=== PATIENT | male | born 1960 | race Caucasian/White ===

== ENCOUNTER 2022-10-01 21:23 | Observation (INO) | payer OTHER, SELFPAY ==
[2022-10-01] VITALS (8 sets, daily range): BP systolic 128–163; BP diastolic 72–91; PULSE 55–62; RESP 15–27; TEMP 36.5; O2SAT 98–100; BMI 23.7
--- NOTE | 2022-10-01 21:40 | DI.CT.S_ITS ---
PROCEDURE: CT ANGIO HEAD AND NECK INDICATIONS: recurrent transient Left side paresthesia TECHNIQUE: Pre-contrast 4.5 mm thick sections acquired from the foramen magnum to the vertex. After the administration of intravenous contrast, 1 mm thick sections acquired from the aortic arch through the [place] of [place]. Post-contrast 4.5 mm thick sections then re-acquired from the foramen magnum to the vertex. 3-dimensional jqugfnl-papenyebf-woadlntqfh (MIP) and/or volume rendering reformats were acquired of the central intracranial vasculature and neck separately. For radiation dose reduction, the following was used: automated exposure control, adjustment of mA and/or kV according to patient size. COMPARISON: None. FINDINGS: Image quality: Mild streak artifact can be seen through the skull base. There is also streak artifact seen through the level of the shoulders. BRAIN: CSF spaces: Ventricles are normal in size and shape. Basal cisterns are patent. No extra-axial fluid collections. Brain: No midline shift. No intracranial bleeds or masses. Yancey-white matter interface appears intact. Skull and face: Calvarium and facial bones appear intact, without suspicious lesions. Orbits appear normal. Sinuses: Sinuses and mastoids are clear. HEAD CT ANGIOGRAPHY: Anterior circulation: Intracranial internal carotid arteries are normal in size and flow. The flow within the paired anterior cerebral arteries is normal and symmetric. The flow within the middle cerebral arteries is normal and symmetric. The anterior communicating artery is seen. No aneurysms are seen. Posterior circulation: Visualized portions of the vertebral arteries demonstrate normal caliber, and join to form a normal appearing basilar artery. Flow within the posterior cerebral arteries is normal and symmetric. No aneurysms are seen. NECK CT ANGIOGRAPHY: Carotid system: The great vessels demonstrate a conventional anatomy as they arise from the aortic arch. The origins of the common carotid arteries appear patent. The common carotid arteries demonstrate normal caliber and courses. The bifurcation regions are both widely patent. The internal carotid arteries demonstrate normal calibers and courses. Posterior circulation: The origins of the vertebral arteries both appear widely patent. The more superior extracranial portions of both vertebral arteries also demonstrate normal courses and calibers. They join to form a normal appearing basilar artery. Soft tissues: Visualized neck soft tissues demonstrate no suspicious abnormalities. Bones: No suspicious bony lesions. Visualized cervical spine appears normally aligned. Moderate cervical spine degenerative changes can be seen, particularly within the mid and inferior cervical spine. IMPRESSION: No acute intracranial process is seen. No significant intracranial arterial abnormality is seen. Within the arteries of the neck, no hemodynamically significant stenosis can be seen. If there is strong clinical suspicion for an acute stroke, please consider a brain MRI for further evaluation, as it is more sensitive (assuming that there is no contraindication to MRI). Additional findings: Moderate cervical spine degenerative change Any quantitative measurements of stenosis were performed using NASCET criteria. Dictated by: Joon Kent M.D. on 10/01/2022 at 21:23 Approved by: Joon Kent M.D. on 10/01/2022 at 21:26
[2022-10-01 22:11] LABS: Appearance Urine UA CLEAR; Bilirubin Urine UA NEGATIVE (NEGATIVE); Color Urine UA YELLOW; Glucose Urine UA NEGATIVE (Negative); Ketones Urine UA NEGATIVE (NEGATIVE); Leukocyte Esterase Urine UA NEGATIVE (NEGATIVE); Nitrite Urine UA NEGATIVE (Negative); Occult Blood Urine UA NEGATIVE (Negative); Protein Urine UA NEGATIVE (Negative); Specific Gravity Urine UA <=1.005 (1.000-1.035); Urobilinogen Urine UA 0.2 E.U./dL (0.2); pH Urine UA 6.5 (4.5-8.0)
[2022-10-01 22:14] LABS: Add Manual Diff / Slide Review NO; Basophils Absolute Auto 100 /uL (0-100); Basophils Percent Auto 1.1 % (0-2); Eosinophils Absolute Auto 200 /uL (0-450); Eosinophils Percent Auto 2.8 % (2-4); Hematocrit 40.9 % (41-53); Hemoglobin 13.7 g/dL (13.5-17.5); Lymphocytes Absolute Auto 1900 /uL (1100-4500); Lymphocytes Percent Auto 34.6 % (25-40); Mean Corpuscular HGB Conc 33.6 % (30-36); Mean Corpuscular Hemoglobin 31.3 PG (26-34); Mean Corpuscular Volume 93.1 fL (80-100); Monocytes Absolute Auto 600 /uL (0-900); Monocytes Percent Auto 11.7 % (3-14); Neutrophils Absolute Auto 2700 /uL (1500-7000); Neutrophils Percent Auto 49.8 % (50-75); Platelet Count 197 X10^3/uL (150-400); Red Blood Cell Count 4.39 X10^6/uL (4.5-5.9); White Blood Cell Count 5.5 X10^3/uL (4.5-11.0)
[2022-10-01 22:14] LABS: UR Morphine/Opiate cutoff 300 Negative (Negative); Ur Creatinine 20 (Normal); Ur Specific Gravity <1.005 (Normal); Urine Amphetamines Negative (Negative); Urine Barbiturates Negative (Negative); Urine Benzodiazepines Negative (Negative); Urine Cocaine Negative (Negative); Urine MDMA Negative (Negative); Urine Methadone Negative (Negative); Urine Methamphetamines Negative (Negative); Urine Oxycodone Negative (Negative); Urine Phencyclidine Negative (Negative); Urine Tetrahydrocannabinol Negative (Negative); Urine Tricyclic Antidepressant Negative (Negative); Urine pH 6.5 (Normal)
[2022-10-01 22:17] LABS: INR 1.1 (0.9-1.3); Prothrombin Time 12.2 SECONDS (10.1-12.7)
[2022-10-01 22:20] LABS: PTT Partial Thromboplastin Tim 34 SECONDS (26-36)
[2022-10-01 22:22] LABS: Alanine Aminotransferase 21 IU/L (<50); Albumin 4.7 g/dL (3.5-5.0); Albumin Globulin Ratio 1.2 (1.0-2.8); Alkaline Phosphatase 73 U/L (38-126); Aspartate Aminotransferase 24 IU/L (17-59); BUN Creatinine Ratio 18.5 (6-22); Bilirubin Total 0.4 mg/dL (0.2-1.3); Blood Urea Nitrogen 15 mg/dL (9-20); Calcium 9.6 mg/dL (8.4-10.2); Carbon Dioxide 29 mmol/L (22-32); Chloride 102 mmol/L (98-107); Creatine Kinase 100 U/L (55-170); Estimated Glomerular Filt Rate > 60 mL/min (>60); Ethanol (ETOH) < 10 mg/dL; Globulin 3.8 g/dL (1.7-4.1); Glucose 88 mg/dL (80-110); HEMOLYSIS < 15 (0-50); Potassium 4.2 mmol/L (3.4-5.1); Sodium 139 mmol/L (137-145); Total Protein 8.5 g/dL (6.3-8.2)
[2022-10-01 22:33] LABS: Troponin I < 0.012 ng/mL (0.01-0.034)
[2022-10-01 22:43] LABS: Bacteria Urine None Seen; Culture Indicated Urine Cult Not Indicated; RBC Urine None Seen (0-5/HPF); WBC Urine None Seen (0-5/HPF)
[2022-10-01 23:02] LABS: COVID19 -Nasal RAPID Negative (Negative)
[2022-10-02] VITALS (8 sets, daily range): BP systolic 108–160; BP diastolic 63–77; PULSE 52–78; RESP 16–19; TEMP 36.3–37; O2SAT 96–100; BMI 23.7
--- NOTE | 2022-10-02 00:08 | ED.NEUROSD ---
HPI - Neuro Symptoms/Deficit General Chief Complaint: Neuro Symptoms/Deficit Stated Complaint: Tingling down left side Time Seen by Provider: 10/01/22 21:38 History of Present Illness HPI Narrative: 62-year-old gentleman with a history of hypertension presents with a week and half history of vertigo that he describes that his eyes not quite tracking the same causing dizziness. It is worse when he looks down or when he is going around a corner. 48 hours ago he had an episode lasting approximately 10 minutes where his left arm shoulder and leg experienced significant paresthesia without weakness. This happened when he was reaching over his head with his left arm. Similar episode happened earlier this evening, again reaching over his head with his left arm and significant decreased sensation all along the left side hand shoulder torso leg not involving head or face. Does note that he has some minor paresthesia still in the left small finger. There is no other complaints. He is not recently been ill, no trauma, no current chest pain, palpitations, dyspnea, abdominal pain, vomiting, diarrhea. On Anticoagulants: No Related Data Home Medications Medication Instructions Recorded Confirmed lisinopril 20 mg tablet 40 mg BEDTIME 10/02/22 10/02/22 Allergies Allergy/AdvReac Type Severity Reaction Status Date / Time No Known Drug Allergies Allergy Verified 10/01/22 21:34 Review of Systems Hematologic/Lymphatic On Anticoagulants: No Patient History Medical History Essential hypertension Ocular migraine Surgical History (Updated 10/02/22 @ 01:54 by RENATA Knowles) History of appendectomy History of knee surgery Family History (Updated 10/02/22 @ 01:55 by RENATA Knowles) Mother COPD (chronic obstructive pulmonary disease) Father Hypertension Social History household members: spouse Smoking Status: Never smoker Smoking Status: Never smoker alcohol intake frequency: a few times a week Substance Use Type: does not use Exam Initial Vital Signs Initial Vital Signs: Vital Signs Temperature 97.7 F 10/01/22 21:28 Pulse Rate 61 10/01/22 21:28 Respiratory Rate 16 10/01/22 21:28 Blood Pressure 163/75 H 10/01/22 21:28 Pulse Oximetry 100 10/01/22 21:28 Oxygen Delivery Method Room Air 10/01/22 21:28 General: Healthy appearing, in no acute distress. Able to give a complete and coherent history. Well-nourished well-developed HEENT: Moist mucous membranes, normal sclera with reactive pupils, Neck: No JVD, supple Respiratory: Lungs are clear to auscultation, no wheezing no rales no rhonchi. Full and symmetrical air movement Cardiac: Regular rate and rhythm no murmurs no bruits Abdomen: Soft, nontender, good bowel tones, no flank pain Skin: Warm and dry, no rashes Neurologic: Grossly neurologically intact with no obvious asymmetries or abnormalities. Perhaps minor paresthesia left small finger. NIH score is 0 Extremities: No trauma, well perfused Psych: Cooperative, appropriate insight and affect Scores NIH Stroke Scale Citation:: NIH score is 0 Course Orders Ordered: ED Orders 10/01/22 21:38 EKG-12 Lead Stat 10/01/22 21:40 CT angio head and neck Stat 10/01/22 22:00 Complete Blood Count AUTO DIFF Stat Comprehensive Metabolic Panel Stat Ethanol (ETOH) Stat PTT Partial Thromboplastin Adam Stat Prothrombin Time INR Stat Troponin & CK Cardiac Panel Stat 10/01/22 22:27 COVID19 -Nasal RAPID Stat Acetaminophen (Acetaminophen 325 Mg Tablet) 650 mg PO Q6H PRN PRN Reason: Fever/Mild Pain (1-3) Aspirin (Aspirin Ec 325 Mg Tablet) 325 mg PO DAILY [facility] Atorvastatin Calcium (Atorvastatin 20 Mg Tablet) 20 mg PO BEDTIME [facility] Clopidogrel Bisulfate (Clopidogrel 75 Mg Tablet) 75 mg PO DAILY [facility] Enoxaparin Sodium (Enoxaparin 40 Mg/0.4 Ml Syringe) 40 mg SUBCUT DAILY [facility] Naloxone HCl (Naloxone 0.4 Mg/Ml Vial) 0.2 mg IV Q2MIN PRN PRN Reason: Opiate Reversal Ondansetron HCl (Ondansetron 4 Mg/2 Ml Inj) 4 mg IV Q8HR PRN PRN Reason: Nausea And Vomiting Vital Signs Vital signs: Vital Signs - 8 hr 10/01/22 22:00 10/01/22 22:00 10/01/22 22:17 Pulse Rate 62 62 Respiratory Rate 26 H 15 Blood Pressure 146/76 H Pulse Oximetry 99 99 10/01/22 22:17 10/01/22 22:30 10/01/22 22:30 Pulse Rate 57 L Respiratory Rate 27 H Blood Pressure 153/91 H 139/82 Pulse Oximetry 100 10/01/22 23:00 10/01/22 23:00 10/01/22 23:30 Pulse Rate 55 L Respiratory Rate 15 Blood Pressure 140/72 128/75 Pulse Oximetry 99 10/01/22 23:30 10/02/22 00:00 10/02/22 00:02 Pulse Rate 55 L 77 Respiratory Rate 16 Blood Pressure 132/74 Pulse Oximetry 99 10/02/22 00:02 10/02/22 00:30 10/02/22 00:30 Pulse Rate 52 L 56 L Respiratory Rate 19 Blood Pressure 160/77 H Pulse Oximetry 100 100 MDM - Neuro Symptoms/Deficit Lab Data 10/01/22 22:00 10/01/22 22:00 Labs: Lab Results 10/01/22 10/01/22 10/01/22 Range/Units 20:43 20:45 22:00 WBC 5.5 (4.5-11.0) X10^3/uL RBC 4.39 L (4.5-5.9) X10^6/uL Hgb 13.7 (13.5-17.5) g/dL Hct 40.9 L (41-53) % MCV 93.1 (80-100) fL MCH 31.3 (26-34) PG MCHC 33.6 (30-36) % RDW 13.0 (11.6-14.8) % Plt Count 197 (150-400) X10^3/uL Neut % (Auto) 49.8 L (50-75) % Lymph % (Auto) 34.6 (25-40) % [place] % (Auto) 11.7 (3-14) % Eos % (Auto) 2.8 (2-4) % Baso % (Auto) 1.1 (0-2) % Neut # (Auto) 2700 (4510-8137) /uL Lymph # (Auto) 1900 (0575-9254) /uL [place] # (Auto) 600 (0-900) /uL Eos # (Auto) 200 (0-450) /uL Baso # (Auto) 100 (0-100) /uL PT (10.1-12.7) SECONDS INR (0.9-1.3) APTT (26-36) SECONDS Sodium (137-145) mmol/L Potassium (3.4-5.1) mmol/L Chloride (98-107) mmol/L Carbon Dioxide (22-32) mmol/L BUN (9-20) mg/dL Creatinine (0.66-1.25) mg/dL Estimated GFR (>60) mL/min BUN/Creatinine Ratio (6-22) Glucose (80-110) mg/dL Calcium (8.4-10.2) mg/dL Total Bilirubin (0.2-1.3) mg/dL AST (17-59) IU/L ALT (<50) IU/L Alkaline Phosphatase (38-126) U/L Total Creatine Kinase (55-170) U/L CK-MB (CK-2) CK-MB (CK-2) Rel Index Troponin I (0.01-0.034) ng/mL NT-Pro-B Natriuret Pep (<125) pg/mL Total Protein (6.3-8.2) g/dL Albumin (3.5-5.0) g/dL Globulin (1.7-4.1) g/dL Albumin/Globulin Ratio (1.0-2.8) Urine Color Yellow Urine Appearance Clear Urine pH 6.5 (4.5-8.0) Ur Specific [place] <=1.005 (1.000-1.035) Urine Protein Negative (Negative) Urine Glucose (UA) Negative (Negative) g/dL Urine Ketones Negative (NEGATIVE) Urine Occult Blood Negative (Negative) Urine Nitrate Negative (Negative) Urine Bilirubin Negative (NEGATIVE) Urine Urobilinogen 0.2 (0.2) E.U./dL Ur Leukocyte Esterase Negative (NEGATIVE) Urine RBC None seen (0-5/HPF) Urine WBC None seen (0-5/HPF) Urine Bacteria None seen (None) Ur Culture Indicated? Cult not indicated U Opiates 300ng/mL cut Negative (Negative) Ur Oxycodone Screen Negative (Negative) Urine Methadone Screen Negative (Negative) Ur Barbiturates Screen Negative (Negative) U Tricyclic Antidepress Negative (Negative) Ur Phencyclidine Scrn Negative (Negative) Ur Amphetamines Screen Negative (Negative) U Methamphetamines Scrn Negative (Negative) Ur MDMA Scrn (Ecstasy) Negative (Negative) U Benzodiazepines Scrn Negative (Negative) Urine Cocaine Screen Negative (Negative) U Marijuana (THC) Screen Negative (Negative) Ethyl Alcohol ( - 10) mg/dL SARS-CoV-2 (PCR) (Negative) 10/01/22 10/01/22 10/01/22 Range/Units 22:00 22:00 22:00 WBC (4.5-11.0) X10^3/uL RBC (4.5-5.9) X10^6/uL Hgb (13.5-17.5) g/dL Hct (41-53) % MCV (80-100) fL MCH (26-34) PG MCHC (30-36) % RDW (11.6-14.8) % Plt Count (150-400) X10^3/uL Neut % (Auto) (50-75) % Lymph % (Auto) (25-40) % [place] % (Auto) (3-14) % Eos % (Auto) (2-4) % Baso % (Auto) (0-2) % Neut # (Auto) (3353-6094) /uL Lymph # (Auto) (7872-8034) /uL [place] # (Auto) (0-900) /uL Eos # (Auto) (0-450) /uL Baso # (Auto) (0-100) /uL PT 12.2 (10.1-12.7) SECONDS INR 1.1 (0.9-1.3) APTT 34 (26-36) SECONDS Sodium 139 (137-145) mmol/L Potassium 4.2 (3.4-5.1) mmol/L Chloride 102 (98-107) mmol/L Carbon Dioxide 29 (22-32) mmol/L BUN 15 (9-20) mg/dL Creatinine 0.81 (0.66-1.25) mg/dL Estimated GFR > 60 (>60) mL/min BUN/Creatinine Ratio 18.5 (6-22) Glucose 88 (80-110) mg/dL Calcium 9.6 (8.4-10.2) mg/dL Total Bilirubin 0.4 (0.2-1.3) mg/dL AST 24 (17-59) IU/L ALT 21 (<50) IU/L Alkaline Phosphatase 73 (38-126) U/L Total Creatine Kinase 100 (55-170) U/L CK-MB (CK-2) TNP CK-MB (CK-2) Rel Index TNP Troponin I < 0.012 (0.01-0.034) ng/mL NT-Pro-B Natriuret Pep 56 (<125) pg/mL Total Protein 8.5 H (6.3-8.2) g/dL Albumin 4.7 (3.5-5.0) g/dL Globulin 3.8 (1.7-4.1) g/dL Albumin/Globulin Ratio 1.2 (1.0-2.8) Urine Color Urine Appearance Urine pH (4.5-8.0) Ur Specific [place] (1.000-1.035) Urine Protein (Negative) Urine Glucose (UA) (Negative) g/dL Urine Ketones (NEGATIVE) Urine Occult Blood (Negative) Urine Nitrate (Negative) Urine Bilirubin (NEGATIVE) Urine Urobilinogen (0.2) E.U./dL Ur Leukocyte Esterase (NEGATIVE) Urine RBC (0-5/HPF) Urine WBC (0-5/HPF) Urine Bacteria (None) Ur Culture Indicated? U Opiates 300ng/mL cut (Negative) Ur Oxycodone Screen (Negative) Urine Methadone Screen (Negative) Ur Barbiturates Screen (Negative) U Tricyclic Antidepress (Negative) Ur Phencyclidine Scrn (Negative) Ur Amphetamines Screen (Negative) U Methamphetamines Scrn (Negative) Ur MDMA Scrn (Ecstasy) (Negative) U Benzodiazepines Scrn (Negative) Urine Cocaine Screen (Negative) U Marijuana (THC) Screen (Negative) Ethyl Alcohol < 10 ( - 10) mg/dL SARS-CoV-2 (PCR) (Negative) 10/01/22 Range/Units 22:27 WBC (4.5-11.0) X10^3/uL RBC (4.5-5.9) X10^6/uL Hgb (13.5-17.5) g/dL Hct (41-53) % MCV (80-100) fL MCH (26-34) PG MCHC (30-36) % RDW (11.6-14.8) % Plt Count (150-400) X10^3/uL Neut % (Auto) (50-75) % Lymph % (Auto) (25-40) % [place] % (Auto) (3-14) % Eos % (Auto) (2-4) % Baso % (Auto) (0-2) % Neut # (Auto) (5153-2417) /uL Lymph # (Auto) (8798-6444) /uL [place] # (Auto) (0-900) /uL Eos # (Auto) (0-450) /uL Baso # (Auto) (0-100) /uL PT (10.1-12.7) SECONDS INR (0.9-1.3) APTT (26-36) SECONDS Sodium (137-145) mmol/L Potassium (3.4-5.1) mmol/L Chloride (98-107) mmol/L Carbon Dioxide (22-32) mmol/L BUN (9-20) mg/dL Creatinine (0.66-1.25) mg/dL Estimated GFR (>60) mL/min BUN/Creatinine Ratio (6-22) Glucose (80-110) mg/dL Calcium (8.4-10.2) mg/dL Total Bilirubin (0.2-1.3) mg/dL AST (17-59) IU/L ALT (<50) IU/L Alkaline Phosphatase (38-126) U/L Total Creatine Kinase (55-170) U/L CK-MB (CK-2) CK-MB (CK-2) Rel Index Troponin I (0.01-0.034) ng/mL NT-Pro-B Natriuret Pep (<125) pg/mL Total Protein (6.3-8.2) g/dL Albumin (3.5-5.0) g/dL Globulin (1.7-4.1) g/dL Albumin/Globulin Ratio (1.0-2.8) Urine Color Urine Appearance Urine pH (4.5-8.0) Ur Specific [place] (1.000-1.035) Urine Protein (Negative) Urine Glucose (UA) (Negative) g/dL Urine Ketones (NEGATIVE) Urine Occult Blood (Negative) Urine Nitrate (Negative) Urine Bilirubin (NEGATIVE) Urine Urobilinogen (0.2) E.U./dL Ur Leukocyte Esterase (NEGATIVE) Urine RBC (0-5/HPF) Urine WBC (0-5/HPF) Urine Bacteria (None) Ur Culture Indicated? U Opiates 300ng/mL cut (Negative) Ur Oxycodone Screen (Negative) Urine Methadone Screen (Negative) Ur Barbiturates Screen (Negative) U Tricyclic Antidepress (Negative) Ur Phencyclidine Scrn (Negative) Ur Amphetamines Screen (Negative) U Methamphetamines Scrn (Negative) Ur MDMA Scrn (Ecstasy) (Negative) U Benzodiazepines Scrn (Negative) Urine Cocaine Screen (Negative) U Marijuana (THC) Screen (Negative) Ethyl Alcohol ( - 10) mg/dL SARS-CoV-2 (PCR) Negative (Negative) Urine Dip Bedside Urine Glucose Negative Bedside Urine Bilirubin - Negative Bedside Urine Ketone - Negative Urine Specific [place] 1.010 Bedside Urine Occult Blood - Negative Bedside Urine pH 7.0 Bedside Urine Protein - Negative Bedside Urine Urobilinogen - Negative Bedside Urine Nitrite - Negative Bedside Urine Leukocytes - Negative Esterase Imaging Data CTA head and neck: Radiologist's Impression: FINDINGS:? Image quality:? Mild streak artifact can be seen through the skull base.? There is also streak artifact seen through the level of the shoulders. ? BRAIN:? CSF spaces:? Ventricles are normal in size and shape.? Basal cisterns are patent.? No extra-axial fluid collections.? ? Brain:? No midline shift.? No intracranial bleeds or masses.? Yancey-white matter interface appears intact.? ? Skull and face:? Calvarium and facial bones appear intact, without suspicious lesions.? Orbits appear normal.? ? Sinuses:? Sinuses and mastoids are clear.? ? HEAD CT ANGIOGRAPHY:? Anterior circulation:? Intracranial internal carotid arteries are normal in size and flow.? The flow within the paired anterior cerebral arteries is normal and symmetric.? The flow within the middle cerebral arteries is normal and symmetric.? The anterior communicating artery is seen.? No aneurysms are seen.? ? Posterior circulation:? Visualized portions of the vertebral arteries demonstrate normal caliber, and join to form a normal appearing basilar artery.? Flow within the posterior cerebral arteries is normal and symmetric.? No aneurysms are seen.? ? NECK CT ANGIOGRAPHY:? Carotid system:? The great vessels demonstrate a conventional anatomy as they arise from the aortic arch.? The origins of the common carotid arteries appear patent.? The common carotid arteries demonstrate normal caliber and courses.? The bifurcation regions are both widely patent.? The internal carotid arteries demonstrate normal calibers and courses.? ? Posterior circulation:? The origins of the vertebral arteries both appear widely patent.? The more superior extracranial portions of both vertebral arteries also demonstrate normal courses and calibers.? They join to form a normal appearing basilar artery.? ? Soft tissues:? Visualized neck soft tissues demonstrate no suspicious abnormalities.? ? Bones:? No suspicious bony lesions.? Visualized cervical spine appears normally aligned.? Moderate cervical spine degenerative changes can be seen, particularly within the mid and inferior cervical spine. ? ? ? IMPRESSION:? ? No acute intracranial process is seen.? ? No significant intracranial arterial abnormality is seen.? ? Within the arteries of the neck, no hemodynamically significant stenosis can be seen. ? ? If there is strong clinical suspicion for an acute stroke, please consider a brain MRI for further evaluation, as it is more sensitive (assuming that there is no contraindication to MRI). ? ? ? Additional findings:? Moderate cervical spine degenerative change ? Any quantitative measurements of stenosis were performed using NASCET criteria.? ? ? Dictated by: Joon Kent M.D. on 10/01/2022 at 21:23 ?? MDM Narrative Medical decision making narrative: CC: 2 episodes of left-sided paresthesias lasting 10 minutes, vertigo for the last week and a half. This is an acute finding with potential for significant systemic symptoms and life-threatening complication Complicating co-morbidities: Hypertension Corroborating data: Data collected from: patient, and Differential considered: Stroke, TIA, mass or tumor, infection Exam documented above, pertinent findings include: Back to baseline with NIH score is 0 Lab Test results independently reviewed as above. Pertinent findings: CBC is unremarkable Chemistries are unremarkable Independently reviewed EKG as above -sinus rhythm with no acute ischemic changes Imaging studies independently reviewed: CTA of the head and neck shows no acute findings and no large vessel occlusions Discussion: Otherwise healthy 62-year-old gentleman with vertigo for a week and a half and 2 episodes now of left-sided body paresthesia each lasting for 10 minutes. Needs further workup for TIA versus stroke. Will admit to the hospitalist service with anticipation of MRI, additional lab studies and likely echocardiogram. Findings and plan reviewed with patient he and his are agreeable to current admission. Care is reviewed with the hospitalist service Discharge Plan Departure Patient Disposition: Admitted as Observation Clinical Impression: Vertigo Transient cerebral ischemia Qualifiers: Transient cerebral ischemia type: unspecified Qualified Code(s): G45.9 - Transient cerebral ischemic attack, unspecified Admit Date/Time: 10/02/22 00:32 Admit Provider: Gely Butler
--- NOTE | 2022-10-02 00:35 | DI.MRI.S_ITS ---
PROCEDURE: MR HEAD/BRAIN WO CON INDICATIONS: TIA/Stroke r/o TECHNIQUE: Non-contrast axial T1 spin echo, axial T2 fast spin echo, sagittal and axial FLAIR, coronal T2 fast spin echo, axial gradient echo, axial diffusion and ADC through the brain. COMPARISON: [facility], CT, CT ANGIO HEAD AND NECK, 10/01/2022, 21:46. FINDINGS: Image quality: Excellent. CSF spaces: Ventricles appear symmetric in size and shape. Basal cisterns are patent. No extra-axial fluid collections. Brain: No intracranial bleeds or mass effects. There is cerebral volume loss for age. There are periventricular and deep white matter chronic small vessel ischemic changes. Brainstem appears normal. Diffusion-weighted images show no acute ischemic insults. No chronic ischemic insults. Normal intravascular flow voids are present. Skull and face: Calvarial bone marrow is normal in signal. Orbits are normal. Sinuses: Moderate amount of left mastoid fluid. Right mastoids are clear. Sinuses are clear. IMPRESSION: 1. No acute process. No recent infarct. 2. Mild volume loss. Minimal small vessel ischemic disease. Dictated by: Aydee Day M.D. on 10/02/2022 at 9:08 Approved by: Aydee Day M.D. on 10/02/2022 at 9:09
--- NOTE | 2022-10-02 00:37 | DI.ECHO.S_ITS ---
[facility] +---------+ [facility] +---------+ : : [address] : : : : [id number] : : : : Phone: [phone]+ Echocardiogram Report + + :Name: ASIF ARDON Study Date: 10/02/2022 Height: 72 in : :[facility] ReadingLocation: [facility] Weight: 175 lb : : Gender: Male BSA: 2.0 m2 : :: 1960 Age: 62 yrs BP: 108/77 mmHg: :Reason For Study: TIA r/o Stroke : : Performed By: Lynda Zapien : :Referring: MIKAYLA GRANDE : + + Interpretation Summary The left ventricle is normal in size. Left ventricular systolic function appears normal without focal wall motion abnormalities. The ejection fraction is estimated to be 55-60%. Diastolic parameters suggest a relaxation abnormality of the left ventricle, consistent with probable normal filling pressures. The right ventricle is moderately dilated. The right ventricular systolic function is normal. The right ventricular systolic pressure is estimated to be at least 23 mmHg based on an estimated right atrial pressure of 3 mm Hg. The left atrium is borderline dilated. The right atrium is mildly dilated. Injection of contrast documented no interatrial shunt. There is mild mitral valve prolapse. There is prolapse of the posterior mitral valve leaflet(s). There is a late systolic MR that is moderate at most. There is mild aortic regurgitation. There is mild to moderate pulmonic regurgitation. The aortic root is mildly dilated. Procedure: A two-dimensional transthoracic echocardiogram with color flow and Doppler was performed. The study quality was technically adequate. There is no prior echocardiogram noted for this patient. A saline contrast injection was performed to assess for cardiac shunting. The patient was in normal sinus rhythm during the exam. Left Ventricle: The left ventricle is normal in size. Left ventricular wall thickness is mildly increased. Left ventricular systolic function appears normal without focal wall motion abnormalities. The ejection fraction is estimated to be 55-60%. Diastolic parameters suggest a relaxation abnormality of the left ventricle, consistent with probable normal filling pressures. Right Ventricle: The right ventricle is moderately dilated. The right ventricular systolic function is normal. Atria: The left atrium is borderline dilated. The right atrium is mildly dilated. Injection of contrast documented no interatrial shunt. Mitral Valve: The mitral valve leaflets appear mildly thickened, but open well. There is mild mitral valve prolapse. There is prolapse of the posterior mitral valve leaflet(s). There is no mitral valve stenosis. There is a late systolic MR that is moderate at most. Aortic Valve: The aortic valve is trileaflet. The aortic valve opens well. There is no aortic valve stenosis. There is mild aortic regurgitation. Tricuspid Valve: The tricuspid valve is normal. There is no tricuspid stenosis. There is mild tricuspid regurgitation. The right ventricular systolic pressure is estimated to be at least 23 mmHg based on an estimated right atrial pressure of 3 mm Hg. Pulmonic Valve: There is borderline thickening of the pulmonic valve. There is no pulmonic valvular stenosis. There is mild to moderate pulmonic regurgitation. Great Vessels: The aortic root is mildly dilated. The ascending aorta is at the upper limits of normal in size. The pulmonary artery is normal size. The IVC is of normal diameter and collapses greater than 50% with a sniff. This suggests a low right atrial pressure of 3 mm Hg. Pericardium/ Pleura There is no pericardial effusion. There is no pleural effusion. MMode/2D Measurements & Calculations LVIDd: 5.3 cm LVOT diam: 2.7 cm LVIDs: 3.3 cm Ao root diam: 3.9 cm FS: 37.5 % asc Aorta Diam: 3.4 cm EPSS: 0.86 cm IVSd: 1.3 cm LVPWd: 1.0 cm LV zee. diameter/BSA (cm/m^2): 2.6 LV sys. diameter/BSA (cm/m^2): 1.6 LA A2 area: 20.7 cm2 RA long axis: 5.8 cm LA A4 area: 20.8 cm2 RA area: 22.3 cm2 LA length (vol): 5.6 cm RA vol: 72.5 ml LA vol: 64.8 ml RA : 36.0 ml/m2 LA vol index: 32.2 ml/m2 TAPSE: 3.5 cm Doppler Measurements & Calculations Ao V2 max: 124.3 cm/sec LVOT Max Calvin: 91.2 cm/sec Ao V2 mean: 82.3 cm/sec LV V1 max P.3 mmHg Ao max P.2 mmHg LV V1 VTI: 19.1 cm Ao mean P.1 mmHg SELVIN(I,D): 4.2 cm2 Ao V2 VTI: 25.0 cm SELVIN(V,D): 4.0 cm2 sev ratio: 0.76 SELVIN indexed to BSA (cm^2/m^2): 2.1 MV E max calvin: 44.7 cm/sec TR max calvin: 224.1 cm/sec MV A max calvin: 38.8 cm/sec TR max P.1 mmHg MV E/A: 1.2 PA V2 max: 63.4 cm/sec Med Peak E' Calvin: 9.2 cm/sec PA V2 mean: 44.3 cm/sec E/E' med: 4.9 PA mean P.86 mmHg Lat Peak E' Calvin: 12.1 cm/sec PA pr(Accel): 34.5 mmHg E/E' lat: 3.7 E/e' average: 4.3 MV dec time: 0.33 sec SV(LVOT): 105.2 ml Reading Physician:05:40 PM
--- NOTE | 2022-10-02 00:45 | PM.HP.1 ---
History of Present Illness History of Present Illness Date Patient Seen: 10/02/22 Time Patient Seen: 00:45 Chief complaint: Tingling down left side Narrative: Clark Reeder is a 62-year-old male with a medical history of hypertension, ocular migraines who presented to the ED following approximately a week and a half vertigo and describes symptoms as my eyes are off, and they do not track in a coordinated fashion, looking down, and turning his head worsens the vertigo he also reported that at some point he was reaching up with his left hand and experienced paresthesia of the left hand and arm which lasted approximately 10 minutes and then resolved. Patient notes that he did have a cold a few weeks ago, and his left ear occasionally feels congested or blocked, had COVID March of 2022. Denies any previous history of stroke or TIA or family history. Patient was diagnosed with ocular migraines approximately 6 months ago and had an EYE MRI at [facility] in [place] where he has his primary care which was negative. Upon arrival in the ED patient's symptoms had completely resolved. His blood pressure was slightly elevated, I personally reviewed all laboratory workups including troponin, EKG, and head and neck CTA which were all negative. On admit patient denies chest pain, shortness in breath, headache, changes in vision, difficulty swallowing, speech impairment, weakness, numbness, tingling, difficulty with ambulation, recent falls, head injury, LOC, fever, body aches, chills, cough, recent exposure to illness, abdominal pain, nausea, vomiting, urinary incontinence/retention, dysuria, frequency, urgency, hematuria, bowel changes, constipation, incontinence, melena, rashes, recent changes to medication, illness, injury, or trauma. Patient admitted for TIA, vertigo, stroke rule out. Patient History Medical History Essential hypertension Ocular migraine Surgical History (Updated 10/02/22 @ 01:54 by RENATA Knowles) History of appendectomy History of knee surgery Family & Social History Family History (Updated 10/02/22 @ 01:55 by RENATA Knowles) Mother COPD (chronic obstructive pulmonary disease) Father Hypertension Safety & Behavioral: Feels Safe in Current Yes Environment Been Physically Hurt or No Threatened By a Person Tobacco & Substance use: Smoking Status Never smoker alcohol intake frequency a few times a week Substance Use Type does not use Meds Home Medications and Allergies Home Medications Medication Instructions Recorded Confirmed Type lisinopril 20 mg tablet 40 mg BEDTIME 10/02/22 10/02/22 History Allergies Allergy/AdvReac Type Severity Reaction Status Date / Time No Known Drug Allergies Allergy Verified 10/01/22 21:34 Review of Systems Review of Systems Narrative: All 12 point systems reviewed with the patient and are negative except otherwise documented. Exam Vital Signs (past 8 hours): - 10/01/22 21:28 10/01/22 21:43 10/01/22 21:48 Temperature 97.7 F Pulse Rate 61 58 L 62 Respiratory Rate 16 21 19 Blood Pressure 163/75 H Pulse Oximetry 100 98 100 Oxygen Delivery Method Room Air 10/01/22 21:48 10/01/22 22:00 10/01/22 22:00 Temperature Pulse Rate 62 Respiratory Rate 26 H Blood Pressure 154/78 H 146/76 H Pulse Oximetry 99 Oxygen Delivery Method 10/01/22 22:17 10/01/22 22:17 10/01/22 22:30 Temperature Pulse Rate 62 Respiratory Rate 15 Blood Pressure 153/91 H 139/82 Pulse Oximetry 99 Oxygen Delivery Method 10/01/22 22:30 10/01/22 23:00 10/01/22 23:00 Temperature Pulse Rate 57 L 55 L Respiratory Rate 27 H 15 Blood Pressure 140/72 Pulse Oximetry 100 99 Oxygen Delivery Method 10/01/22 23:30 10/01/22 23:30 10/02/22 00:00 Temperature Pulse Rate 55 L 77 Respiratory Rate 16 Blood Pressure 128/75 Pulse Oximetry 99 Oxygen Delivery Method 10/02/22 00:02 10/02/22 00:02 10/02/22 00:30 Temperature Pulse Rate 52 L Respiratory Rate Blood Pressure 132/74 160/77 H Pulse Oximetry 100 Oxygen Delivery Method 10/02/22 00:30 Temperature Pulse Rate 56 L Respiratory Rate 19 Blood Pressure Pulse Oximetry 100 Oxygen Delivery Method Oxygen Delivery Method Room Air Narrative Exam Narrative: General: Patient is a well-developed, well-nourished in no distress at this time. HEENT: Normocephalic, atraumatic, extraocular muscles intact, oral pharynx is clear and mucous membranes are moist. Neck is supple and symmetric, trachea is midline, no adenopathy, no thyroid enlargement, nontender, no masses palpated. Negative for JVD Chest: Normal AP diameter and contour without kyphoscoliosis, no nasal flaring, retractions, or tachypneic labored Lungs: Auscultation of all lung acevedo are clear without adventitious sounds, wheezes, rhonchi, or rales. Cardio: S1 & S2 with regular rate and rhythm without murmur, rubs, or gallops, no carotid bruit, no cardiac pulsations present. Abdomen: Soft nontender, negative for organomegaly, or masses. Bowel sounds are present in all 4 quadrants without guarding or rebound, no CVA tenderness. Musculoskeletal: Muscle strength and tone are equal within normal limits, no deformity, crepitus, effusions, cyanosis, clubbing or edema present. Full range of motion intact radial and pedal pulses are normal. Skin: Warm dry and intact without rashes, ulcerations or petechiae. Neuro: Alert and orientated x3, strength is +5/5 in all extremities, sensation to touch intact, no gross deficits noted of cranial nerves. Psych: Patient has a well-kept appearance, appropriate affect, mental status attitude thought context and judgment are appropriate for age. Objective Labs 10/01/22 22:00 10/01/22 22:00 Labs: Laboratory Results - last 24 hr 10/01/22 10/01/22 10/01/22 20:43 20:45 22:00 WBC 5.5 RBC 4.39 L Hgb 13.7 Hct 40.9 L MCV 93.1 MCH 31.3 MCHC 33.6 RDW 13.0 Plt Count 197 Neut % (Auto) 49.8 L Lymph % (Auto) 34.6 [place] % (Auto) 11.7 Eos % (Auto) 2.8 Baso % (Auto) 1.1 Neut # (Auto) 2700 Lymph # (Auto) 1900 [place] # (Auto) 600 Eos # (Auto) 200 Baso # (Auto) 100 PT INR APTT Sodium Potassium Chloride Carbon Dioxide BUN Creatinine Estimated GFR BUN/Creatinine Ratio Glucose Calcium Total Bilirubin AST ALT Alkaline Phosphatase Total Creatine Kinase CK-MB (CK-2) CK-MB (CK-2) Rel Index Troponin I Total Protein Albumin Globulin Albumin/Globulin Ratio Urine Color Yellow Urine Appearance Clear Urine pH 6.5 Ur Specific [place] <=1.005 Urine Protein Negative Urine Glucose (UA) Negative Urine Ketones Negative Urine Occult Blood Negative Urine Nitrate Negative Urine Bilirubin Negative Urine Urobilinogen 0.2 Ur Leukocyte Esterase Negative Urine RBC None seen Urine WBC None seen Urine Bacteria None seen Ur Culture Indicated? Cult not indicated U Opiates 300ng/mL cut Negative Ur Oxycodone Screen Negative Urine Methadone Screen Negative Ur Barbiturates Screen Negative U Tricyclic Antidepress Negative Ur Phencyclidine Scrn Negative Ur Amphetamines Screen Negative U Methamphetamines Scrn Negative Ur MDMA Scrn (Ecstasy) Negative U Benzodiazepines Scrn Negative Urine Cocaine Screen Negative U Marijuana (THC) Screen Negative Ethyl Alcohol SARS-CoV-2 (PCR) 10/01/22 10/01/22 10/01/22 22:00 22:00 22:27 WBC RBC Hgb Hct MCV MCH MCHC RDW Plt Count Neut % (Auto) Lymph % (Auto) [place] % (Auto) Eos % (Auto) Baso % (Auto) Neut # (Auto) Lymph # (Auto) [place] # (Auto) Eos # (Auto) Baso # (Auto) PT 12.2 INR 1.1 APTT 34 Sodium 139 Potassium 4.2 Chloride 102 Carbon Dioxide 29 BUN 15 Creatinine 0.81 Estimated GFR > 60 BUN/Creatinine Ratio 18.5 Glucose 88 Calcium 9.6 Total Bilirubin 0.4 AST 24 ALT 21 Alkaline Phosphatase 73 Total Creatine Kinase 100 CK-MB (CK-2) TNP CK-MB (CK-2) Rel Index TNP Troponin I < 0.012 Total Protein 8.5 H Albumin 4.7 Globulin 3.8 Albumin/Globulin Ratio 1.2 Urine Color Urine Appearance Urine pH Ur Specific [place] Urine Protein Urine Glucose (UA) Urine Ketones Urine Occult Blood Urine Nitrate Urine Bilirubin Urine Urobilinogen Ur Leukocyte Esterase Urine RBC Urine WBC Urine Bacteria Ur Culture Indicated? U Opiates 300ng/mL cut Ur Oxycodone Screen Urine Methadone Screen Ur Barbiturates Screen U Tricyclic Antidepress Ur Phencyclidine Scrn Ur Amphetamines Screen U Methamphetamines Scrn Ur MDMA Scrn (Ecstasy) U Benzodiazepines Scrn Urine Cocaine Screen U Marijuana (THC) Screen Ethyl Alcohol < 10 SARS-CoV-2 (PCR) Negative Assessment & Plan Assessment & Plan narrative: Clark Reeder is a 62-year-old male with a medical history of hypertension, ocular migraines who presented to the ED following a week and a half of visual changes and disturbances, paresthesia and vertigo. Patient will be admitted overnight for observation TIA stroke workup, with echo and MRI in the morning 1. TIA (visual changes with vertigo, paresthesia of left arm hand), transient, acute, present on admission-resolved -patient admitted under TIA stroke protocol-NIH score 0 -Plavix, ASA, Lipitor -echo and MRI tomorrow -orthostatics q.4 hours while awake only 2. Hypertension, essential, chronic, present on admission -continue lisinopril Code status:Full Surrogate decision maker: KEVIN PCR:Negative DVT/VTE prophylaxis: Lovenox and SCDs Disposition: Patient admitted for observation, expected length of stay less than 2 midnights. I have utilized all available immediate resources to obtain, update, or review the patient's current medications. I confirmed that the patient's advanced care plan is present, Code status is documented and/or surrogate decision maker is listed in the patient's medical record. I have personally reviewed patient's chart notes from PCP, specialists, diagnostic imaging, and laboratory results.
[2022-10-02 01:07] LABS: NT-proBNP (BNP-Adult 18+) 56 pg/mL (<125)
[2022-10-02 05:59] LABS: Cholesterol 178 mg/dL (140-199); HDL Cholesterol 44 mg/dL (40-60); LDL Cholesterol Calculated 117 mg/dL (<100); Triglycerides 86 mg/dL (35-150)
--- NOTE | 2022-10-02 09:09 | CM.DANOTE ---
DCP: Case received, EMR reviewed. Patient is currently having MRI, but spouse, Omayra, was in the room. Introduced self and role. Was able to obtain information regarding patient's baseline activity prior to hospitalization. DCP assessment completed with information currently available. Patient is a 62 year old male who admitted early this morning to the care of the hospitalist team. PCP: Dr. Basilio (in [place]). Payer: confirmed: [facility]. Patient came to the hospital via private vehicle secondary to having vertigo, stated, eyes not tracking, causing dizziness. Patient indicated, episode lasted about 10 minutes, some paresthesia without weakness. Patient is here for TIA, symptoms, had MRI, no infarct. Patient was having an MRI at the time, spouse in the room. Confirmed that they live on [address] [place], and in [place] in the fall and winter months. Patient is independent at his baseline, his primary care provider is at [facility] in [place]. He is currently building a cabin on [address]. P: DCP to continue to follow. Patient will work with therapy today. Patient should be able to go home when deemed medically stable. Diana Lyons RN/Security Delivery Specialist Discharge Planning/Care Management CM Discharge Assessment Start: 10/02/22 09:04 Freq: Status: Active Protocol: Document 10/02/22 09:04 (Rec: 10/02/22 09:09 [id number]) Discharge Planning Assessment Assigned Artillery Officer Diana Lyons RN/Security Delivery Specialist Advance Directives? No History Provided By Patient,Medical Record Prior Living Arrangements House Household Members spouse Type of transporation used prior to Drives own vehicle admit Independent with ADL's Yes Is patient alert and oriented? Yes Caregiver for Another No Barriers to Discharge No Transportation Arrangement Spouse Referrals Initiated None needed Whiteboard Updated in Patient Room with Yes name and ext. # of Artillery Officer Review Status In Process Next Review Type Continued Stay Review
[2022-10-02] MEDS: CLOPIDOGREL 75 MG TABLET PO (09:48)
[2022-10-02] MEDS: ASPIRIN EC 325 MG TABLET PO (09:48)
[2022-10-02] MEDS: ENOXAPARIN 40 MG/0.4 ML SYRINGE SUBCUT (09:49)
--- NOTE | 2022-10-02 10:15 | PC.NURSE ---
Pt NIH scale at 1 d/t slight tingling in both left extremities. present in room. No c/o pain.
--- NOTE | 2022-10-02 11:56 | PT.IIE ---
Surgical History (Last Updated 10/02/22 @ 01:54 by Gely Butler [facility]) History of appendectomy History of knee surgery Medical History (Last Reviewed 10/02/22 @ 00:50 by Gely Butler [facility]) Essential hypertension Ocular migraine Physical Therapy Inpatient Evaluation/Re-Eval M1 PT/OT-IP Prior Functional Status Start: 10/02/22 11:43 Freq: Status: Active Protocol: Document 10/02/22 11:43 BC (Rec: 10/02/22 11:56 [id number]) Medical Review Prior Functional Status Medical History Reviewed Yes Diet/Fluid Consistency Regular Communication Independent Mobility and Gait Independent Activities of Daily Living and IADL's Independent Prior Functional Level (Other details) [place] Lives [place] and in [place]. Lives with spouse. Social History Household Members spouse Living Arrangements House Number of Floors (Floors) Two Floors Number of Stairs To Enter/Railing? 1 flight of stairs, no railing yet (being built) by a wall on R side. Home Environment Walk in Shower Employment Status Retired Additional Social History Comment Retired a few years ago. Has been [place]. M2 PT-IP Current Condition Start: 10/02/22 11:43 Freq: Status: Active Protocol: Document 10/02/22 11:43 BC (Rec: 10/02/22 11:56 [id number]) Physical Therapy Current Condition Current Condition Evaluation Date 10/02/22 Treatment Diagnosis TIA, vertigo Onset Date 10/01/22 M3 PT-IP Subjective Start: 10/02/22 11:43 Freq: Status: Active Protocol: Document 10/02/22 11:43 BC (Rec: 10/02/22 11:56 [id number]) Subjective Physical Therapy Visit Type Type Initial Evaluation Visit Start Time 11:00 Visit Stop Time 11:43 Total Visit Minutes 40 Physical Therapy Visit Comments Patient Comments States vertigo started ~2-3 weeks ago Patient Goals none stated Therapy Pain Assessment Pain When Pain Assessed At Rest Pain Present Pain Present Denied Pain M4 PT-IP Mobility and Gait Start: 10/02/22 11:43 Freq: Status: Active Protocol: Document 10/02/22 11:43 BC (Rec: 10/02/22 11:56 [id number]) PT-Bed Mobility Assessment Rolling Level of Assist Independent Supine to Sit Supine to Sit Independent Sit to Supine Sit to Supine Independent Scooting Scooting to Edge of Bed Independent Scooting Up and Down in Bed Independent PT-Transfer Assessment Sit to and From Stand Sit to and from Stand Independent Equipment Transfer Assistive Device None Transfers Transfer Destination Bed,Chair Transfer Technique Stand Step Pivot Transfer Ability Level of Assist Independent Comments Mobility Comments Fully independent with all mobility in room. Preparing to shower at end of PT session. Gait Assessment Gait Gait Assistance Required: Independent Distance (Feet) 400 Assistive Devices Assistive Device None Gait Deviations General Gait Pattern Within Normal Limits Comments Gait Comments No gait deficits. Good brandon . Able to dual task and ambulate without changes to gait. Stair Climbing Assessment Evaluation Level of Assist On Stairs Independent Devices Stair Climbing Assistive Devices None Technique/Endurance Stair Climbing Direction Ascend and Descend Stair Climbing Technique Step Over Step Number of Steps Climbed 3 Query Text: Stair Climbing Set # Repetitions (reps) 2 PT-Balance Assessment Sitting Balance and Reactions Static Sitting Balance Ability Normal Dynamic Sitting Balance Ability Normal Standing Balance and Reactions Static Standing Balance Ability Normal Dynamic Standing Balance Ability Normal Functional Assessments Functional Tests Tinetti Balance and Gait Assessment Other Functional Tests Performed Negative BPPV testing with Irina Hallpike and Roll Test +HIT to L Smooth pursuit, saccades, and convergence WNL No frenzels available to assess resting or gaze evoked nystagmus. M5 PT-IP Objective Assessments Start: 10/02/22 11:43 Freq: Status: Active Protocol: Document 10/02/22 11:43 (Rec: 10/02/22 11:56 [id number]) Orientation Orientation/Cognition Level of Alertness Alert Orientation Name,Date,Place,Situation Language Function Ability No Deficits Noted Safety Awareness Understands Safety Issues Gross Range of Motion Upper Extremity ROM Assessment Within Functional Limits Lower Extremity ROM Assessment Within Functional Limits Strength Upper Extremity Strength Assessment Within Functional Limits Lower Extremity Strength Assessment Within Functional Limits Comments Strength Comments No weakness identified in extremities. Coordination Assessment Gross Coordination Gross Coordination WNL Assessment Finger to Nose Test Normal Performance Pronation/Supination Test Normal Performance Foot Tapping Test Normal Performance Heel on Lynn Test Normal Performance Sensation Assessment Sensation Gross Sensation WNL Light Touch Intact Sensation Description Tingling Comments Sensation Comments Sensation intact LUE vs RUE. No changes in perception of light touch. He reports tingling in LUE and L side of face. LLE tingling has subsided. Muscle Tone Muscle Tone WNL Yes M6 PT-IP Treatment Start: 10/02/22 11:43 Freq: Status: Active Protocol: Document 10/02/22 11:43 BC (Rec: 10/02/22 11:56 BC [id number]) Physical Therapy Treatment Education Education Provided Safety Other Treatments Other Treatment Performed Provided tradeNOW website handout. Educated on possibility of vestibular migraine with hx of migraines in 20s, ocular migraine diagnosed several months ago. Recommend ENT assessment for peripheral function of vestibular system and then progress to neurologist/head specialist if migraine is suspected cause of symptoms. M7 PT-IP Assessment and Plan Start: 10/02/22 11:43 Freq: Status: Active Protocol: Document 10/02/22 11:43 BC (Rec: 10/02/22 11:56 [id number]) PT Summary Assessment and Plan Potential Rehabilitation Potential Excellent Status of Condition at Evaluation Stable Summary Progress Towards Goals Safe For Discharge,Goals Met Assessment Summary Pt admitted due to a couple weeks of new onset vertigo and followed with onset of LUE/LE tingling/numbness. Imaging of brain is negative for acute CVA. He continues to report vertigo that is rather constant throughout the day. It does increase with looking down. His PLOF is fully independent and building a cabin. CLOF: He is demonstrating independent self care and mobility in the hospital. He is a low fall risk. He has good safety awareness. No focal weakness. Testing negative for BPPV. Finding of positive head impulse test to L. I suspect vestibular migraine may be related with his prior hx of migraines, ocular migraines, and now onset of vertigo that is not positional and is constant. Recommend d/c home when medically stable and referral to ENT. Frequency of Treatment Frequency Of Treatment Discharge Discharge Recommendations PT Discharge Recommendations Home Other Discharge Recommendations ENT and/or neurology headache specialist referral for vertigo. It is not BPPV. Could be related to hx of migraines . Consider vestibular migraine . Transportation Needs at Discharge Private Vehicle
--- NOTE | 2022-10-02 16:29 | PM.DS.1 ---
History of Present Illness History of Present Illness Date Patient Seen: 10/02/22 Chief complaint: Tingling down left side Discharge Providers Provider Date of admission: 10/02/22 00:32 Discharge Date: 10/02/22 Consults: 10/02/22 00:38 Consult to Occupational Therapy Evaluate & Treat Comment: Physician Instructions: Evaluate and treat Consult to Physical Therapy Evaluate & Treat Comment: Physician Instructions: Evaluate and Treat Discharge provider: Faiza Hawkins MD Summary Hospital Course Hospital Course: Clark Reeder is a 62-year-old male with a medical history of hypertension, ocular migraines who presented to the ED following approximately a week and a half vertigo and describes symptoms as my eyes are off, and they do not track in a coordinated fashion, looking down, and turning his head worsens the vertigo he also reported that at some point he was reaching up with his left hand and experienced paresthesia of the left hand and arm which lasted approximately 10 minutes and then he had a 2nd episode where he he also had tingling in the left lower extremity as well and the arm and leg tingling lasted about 10 minutes. He called the [employer] patient health nurse and was advised to get to the nearest hospital. Patient notes that he did have a cold a few weeks ago, and his left ear occasionally feels congested or blocked, had COVID March of 2022.? Denies any previous history of stroke or TIA or family history.? Patient was diagnosed with ocular migraines approximately 6 months ago and had an EYE MRI at [facility] in [place] where he has his primary care which was negative.? Upon arrival in the ED patient's symptoms had completely resolved.? CTA in the ER was negative. Subsequent MRI was negative. Patient did have a minimal episode in the left arm/ leg subsequently it only lasted fleetingly and then completely resolved. Echocardiogram has been done but not resulted. We will call the patient with the results tomorrow. Since ABCD2 score is 3 and it would be reasonable discharge the patient and continue a full 21 days of clopidogrel and continue 81 mg aspirin daily with advisement to continue it indefinitely. LDL was minimally elevated and his HDL was within range. Patient was also started on atorvastatin 80 mg daily and this can be adjusted over time based on the cholesterol findings. However ever again the patient should be on the atorvastatin indefinitely. He was also advised to seek hospital assessment if he has symptoms returning. Status at Discharge Cognitive/behavioral status at discharge: at baseline, oriented Functional status at discharge: independent ambulation Overall status at discharge: patient is back to baseline Time Spent with Patient Time spent: Greater than 30 minutes Exam Vital Signs (past 8 hours): - 10/02/22 09:18 10/02/22 09:18 10/02/22 13:36 Temperature 97.9 F Pulse Rate 60 Pulse Rate [Orthostatic Lying] 60 55 L Pulse Rate [Orthostatic Sitting] 66 66 Pulse Rate [Orthostatic Standing] 66 78 Respiratory Rate 16 Blood Pressure 120/72 Blood Pressure [Orthostatic Lying] 120/72 114/63 Blood Pressure [Orthostatic Sitting] 127/77 121/75 Blood Pressure [Orthostatic Standing] 117/77 108/77 Pulse Oximetry 96 10/02/22 13:36 Temperature 98.6 F Pulse Rate Pulse Rate [Orthostatic Lying] Pulse Rate [Orthostatic Sitting] Pulse Rate [Orthostatic Standing] Respiratory Rate 16 Blood Pressure Blood Pressure [Orthostatic Lying] Blood Pressure [Orthostatic Sitting] Blood Pressure [Orthostatic Standing] Pulse Oximetry 98 Oxygen Delivery Method Room Air Oxygen Flow Rate 0 Narrative Exam Narrative: General:? Patient is a well-developed, well-nourished in no distress at this time. HEENT:? Normocephalic, atraumatic, extraocular muscles intact, oral pharynx is clear and mucous membranes are moist.? Neck is supple and symmetric, trachea is midline, no adenopathy, no thyroid enlargement, nontender, no masses palpated.? Negative for JVD Chest:? Normal AP diameter and contour without kyphoscoliosis, no nasal flaring, retractions, or tachypneic labored Lungs:? Auscultation of all lung acevedo are clear without adventitious sounds, wheezes, rhonchi, or rales. Cardio:? S1 & S2 with regular rate and rhythm without murmur, rubs, or gallops, no carotid bruit, no cardiac pulsations present. Abdomen:? Soft nontender, negative for organomegaly, or masses.? Bowel sounds are present in all 4 quadrants without guarding or rebound, no CVA tenderness. Musculoskeletal:? Muscle strength and tone are equal within normal limits, no deformity, crepitus, effusions, cyanosis, clubbing or edema present.? Full range of motion intact radial and pedal pulses are normal. Skin:? Warm dry and intact without rashes, ulcerations or petechiae.? Neuro:? Alert and orientated x3, strength is +5/5 in all extremities, sensation to touch intact, no gross deficits noted of cranial nerves. Psych:? Patient has a well-kept appearance, appropriate affect, mental status attitude thought context and judgment are appropriate for age. Objective Labs 10/01/22 22:00 10/01/22 22:00 Labs: Laboratory Results - last 24 hr 10/01/22 10/01/22 10/01/22 20:43 20:45 22:00 WBC 5.5 RBC 4.39 L Hgb 13.7 Hct 40.9 L MCV 93.1 MCH 31.3 MCHC 33.6 RDW 13.0 Plt Count 197 Neut % (Auto) 49.8 L Lymph % (Auto) 34.6 [place] % (Auto) 11.7 Eos % (Auto) 2.8 Baso % (Auto) 1.1 Neut # (Auto) 2700 Lymph # (Auto) 1900 [place] # (Auto) 600 Eos # (Auto) 200 Baso # (Auto) 100 PT INR APTT Sodium Potassium Chloride Carbon Dioxide BUN Creatinine Estimated GFR BUN/Creatinine Ratio Glucose Calcium Total Bilirubin AST ALT Alkaline Phosphatase Total Creatine Kinase CK-MB (CK-2) CK-MB (CK-2) Rel Index Troponin I NT-Pro-B Natriuret Pep Total Protein Albumin Globulin Albumin/Globulin Ratio Triglycerides Cholesterol LDL Cholesterol, Calc HDL Cholesterol Urine Color Yellow Urine Appearance Clear Urine pH 6.5 Ur Specific [place] <=1.005 Urine Protein Negative Urine Glucose (UA) Negative Urine Ketones Negative Urine Occult Blood Negative Urine Nitrate Negative Urine Bilirubin Negative Urine Urobilinogen 0.2 Ur Leukocyte Esterase Negative Urine RBC None seen Urine WBC None seen Urine Bacteria None seen Ur Culture Indicated? Cult not indicated U Opiates 300ng/mL cut Negative Ur Oxycodone Screen Negative Urine Methadone Screen Negative Ur Barbiturates Screen Negative U Tricyclic Antidepress Negative Ur Phencyclidine Scrn Negative Ur Amphetamines Screen Negative U Methamphetamines Scrn Negative Ur MDMA Scrn (Ecstasy) Negative U Benzodiazepines Scrn Negative Urine Cocaine Screen Negative U Marijuana (THC) Screen Negative Ethyl Alcohol SARS-CoV-2 (PCR) 10/01/22 10/01/22 10/01/22 22:00 22:00 22:00 WBC RBC Hgb Hct MCV MCH MCHC RDW Plt Count Neut % (Auto) Lymph % (Auto) [place] % (Auto) Eos % (Auto) Baso % (Auto) Neut # (Auto) Lymph # (Auto) [place] # (Auto) Eos # (Auto) Baso # (Auto) PT 12.2 INR 1.1 APTT 34 Sodium 139 Potassium 4.2 Chloride 102 Carbon Dioxide 29 BUN 15 Creatinine 0.81 Estimated GFR > 60 BUN/Creatinine Ratio 18.5 Glucose 88 Calcium 9.6 Total Bilirubin 0.4 AST 24 ALT 21 Alkaline Phosphatase 73 Total Creatine Kinase 100 CK-MB (CK-2) TNP CK-MB (CK-2) Rel Index TNP Troponin I < 0.012 NT-Pro-B Natriuret Pep 56 Total Protein 8.5 H Albumin 4.7 Globulin 3.8 Albumin/Globulin Ratio 1.2 Triglycerides Cholesterol LDL Cholesterol, Calc HDL Cholesterol Urine Color Urine Appearance Urine pH Ur Specific [place] Urine Protein Urine Glucose (UA) Urine Ketones Urine Occult Blood Urine Nitrate Urine Bilirubin Urine Urobilinogen Ur Leukocyte Esterase Urine RBC Urine WBC Urine Bacteria Ur Culture Indicated? U Opiates 300ng/mL cut Ur Oxycodone Screen Urine Methadone Screen Ur Barbiturates Screen U Tricyclic Antidepress Ur Phencyclidine Scrn Ur Amphetamines Screen U Methamphetamines Scrn Ur MDMA Scrn (Ecstasy) U Benzodiazepines Scrn Urine Cocaine Screen U Marijuana (THC) Screen Ethyl Alcohol < 10 SARS-CoV-2 (PCR) 10/01/22 10/02/22 22:27 05:23 WBC RBC Hgb Hct MCV MCH MCHC RDW Plt Count Neut % (Auto) Lymph % (Auto) [place] % (Auto) Eos % (Auto) Baso % (Auto) Neut # (Auto) Lymph # (Auto) [place] # (Auto) Eos # (Auto) Baso # (Auto) PT INR APTT Sodium Potassium Chloride Carbon Dioxide BUN Creatinine Estimated GFR BUN/Creatinine Ratio Glucose Calcium Total Bilirubin AST ALT Alkaline Phosphatase Total Creatine Kinase CK-MB (CK-2) CK-MB (CK-2) Rel Index Troponin I NT-Pro-B Natriuret Pep Total Protein Albumin Globulin Albumin/Globulin Ratio Triglycerides 86 Cholesterol 178 LDL Cholesterol, Calc 117 H HDL Cholesterol 44 Urine Color Urine Appearance Urine pH Ur Specific [place] Urine Protein Urine Glucose (UA) Urine Ketones Urine Occult Blood Urine Nitrate Urine Bilirubin Urine Urobilinogen Ur Leukocyte Esterase Urine RBC Urine WBC Urine Bacteria Ur Culture Indicated? U Opiates 300ng/mL cut Ur Oxycodone Screen Urine Methadone Screen Ur Barbiturates Screen U Tricyclic Antidepress Ur Phencyclidine Scrn Ur Amphetamines Screen U Methamphetamines Scrn Ur MDMA Scrn (Ecstasy) U Benzodiazepines Scrn Urine Cocaine Screen U Marijuana (THC) Screen Ethyl Alcohol SARS-CoV-2 (PCR) Negative PFSH Medical History Essential hypertension Ocular migraine Surgical History (Updated 10/02/22 @ 01:54 by RENATA Knowles) History of appendectomy History of knee surgery Family History (Updated 10/02/22 @ 01:55 by RENATA Knowles) Mother COPD (chronic obstructive pulmonary disease) Father Hypertension Social History household members: spouse Smoking Status: Never smoker Discharge Plan Discharge orders & Medications Discharge Orders: Discharge (Order); Ordered 10/02/22 Ordered By: Faiza Hawkins Prescriptions: New aspirin 81 mg tablet,delayed release (DR/EC) 81 mg PO DAILY Qty: 30 0RF clopidogrel 75 mg tablet 75 mg PO DAILY Qty: 20 0RF atorvastatin 80 mg tablet 80 mg PO DAILY Qty: 30 0RF Continued lisinopril 20 mg tablet 40 mg BEDTIME Visit Report/Discharge Packet Stand Alone Forms: Patient Portal/API, Stroke Signs & Symptoms Discharge Data Attending Provider: Gely Butler
[2022-10-03 22:09] LABS: Labcorp Hemoglobin (Hb) A1c 5.4 % (4.8-5.6)
== END 2022-10-02 17:40 | disposition home or self-care (01) ==
LOC: ED 10-02 00:32 → AC 10-02 00:33
PROVIDERS: Admitting Provider Nurse Practitioner Family; Emergency Provider Emergency Medicine; Visit Provider Nurse Practitioner Family
DX: G45.9 Transient cerebral ischemic attack, unspecified (principal); I10 Essential (primary) hypertension; Z20.822 Contact with and (suspected) exposure to COVID-19
CPT/HCPCS: 36415; 36592; 70496; 70498; 70551; 80053; 80061; 80305; 80320; 81001; 81003; 82550; 82962; 83036; 83880; 84484; 85025; 85610; 85730; 87635; 93005; 93010; 93306; 96372; 97161; 97530; 99284; C9803; G0378; J1650